=== PATIENT | male | born 1955 | race Caucasian/White ===

== ENCOUNTER 2017-05-26 08:17 | Day surgery (SDC) | payer OTHER ==
[2017-05-26] MEDS: FAMOTIDINE 20 MG TAB PO (06:00)
[2017-05-26] MEDS: DIAZEPAM 5 MG TAB PO (06:00)
[2017-05-26] MEDS: DIPHENHYDRAMINE 50 MG CAP PO (06:00)
[~2017-05-26 08:17] MED LIST: SOD CHLORIDE 0.45% 1,000 ML IV
[2017-05-26 09:30] LABS: ADD MAN DIFF? NO
[2017-05-26 09:33] LABS: WHITE BLOOD COUNT 5.1 10^3/ul (4.8-10.8)
[2017-05-26 09:33] LABS: BASOPHIL # 0.1 10^3/ul (0.0-0.1); EOSINOPHILS % 0.8 % (0.0-7.0); HEMATOCRIT 42.8 % (42.0-52.0); HEMOGLOBIN 14.8 g/dl (14.0-18.0); LYMPHOCYTES # 1.9 10^3/ul (0.8-2.9); LYMPHOCYTES % 37.3 % (15.0-51.0); MEAN CORPUSCULAR HEMOGLOBIN 31.6 pg (29.0-33.0); MEAN CORPUSCULAR HGB CONC 34.6 g/dl (32.0-37.0); MEAN CORPUSCULAR VOLUME 91.3 fl (82.0-101.0); MEAN PLATELET VOLUME 9.6 fl (7.4-10.4); MONOCYTE # 0.6 10^3/ul (0.3-0.9); MONOCYTES % 10.8 % (0.0-11.0); NEUTROPHIL # 2.5 10^3/ul (1.6-7.5); NEUTROPHILS % 49.5 % (39.0-77.0); PLATELET COUNT 268 10^3/UL (140-415); RED BLOOD COUNT 4.69 10^6/ul (4.70-6.10); RED CELL DISTRIBUTION WIDTH 11.9 % (11.5-14.5)
[2017-05-26 09:51] LABS: ANION GAP 15 (8-16); CARBON DIOXIDE 25 mmol/L (21-31); CHLORIDE 105 mmol/L (97-110); CHOL/HDL RATIO 4.8 RATIO; CHOLESTEROL 207 mg/dl (100-200); GLUCOSE 105 mg/dl (70-220); HDL CHOLESTEROL 43 mg/dl (30-78)
[2017-05-26 10:01] LABS: CREATININE 0.92 mg/dl (0.61-1.24); LDL CHOLESTEROL,CALCULATED 52 mg/dl; POTASSIUM 4.1 mmol/L (3.5-5.1); SODIUM 141 mmol/L (135-144); TRIGLYCERIDES 560 mg/dl (0-149)
[2017-05-26 10:06] LABS: INR 0.95; PROTIME 12.8 Sec (11.9-14.9)
[2017-05-26 10:07] LABS: BLOOD UREA NITROGEN 23 mg/dl (7-20); PARTIAL THROMBOPLASTIN TIME 30.4 Sec (25.0-35.0)
[2017-05-26] MEDS ORDERED: FENTAnyl 50 MCG/ML VIAL (10:34)
[2017-05-26] MEDS ORDERED: NITROGLYCERIN (IC) 100 MCG/ML INJ (10:34)
[2017-05-26] MEDS ORDERED: VERAPAMIL 5 MG INJ (10:34)
[2017-05-26] MEDS ORDERED: IODIXANOL LOCM 100 ML BTL ×2 (10:34→11:47)
[2017-05-26] MEDS ORDERED: LIDOCAINE 1% (MDV) 20 ML INJ (10:34)
[2017-05-26] MEDS ORDERED: MIDAZOLAM 1 MG/ML 2 ML INJ (10:34)
[2017-05-26] MEDS ORDERED: HEPARIN 1000 UNITS/ML 10 ML INJ (10:34)
[2017-05-26] MEDS ORDERED: morphine 2 MG INJ IV (12:00)
[2017-05-26] MEDS ORDERED: AL HYDROX/MG HYDROX/SIMETH 30 ML CUP PO (12:00)
[2017-05-26] MEDS ORDERED: ONDANSETRON 4 MG INJ IV (12:00)
[2017-05-26] MEDS ORDERED: ACETAMINOPHEN 325 MG TAB PO (12:00)
[2017-05-26] MEDS: SOD CHLORIDE 0.9% 1,000 ML IV (12:25)
== END 2017-05-26 16:28 | disposition home or self-care (01) ==
LOC: SDS 08:17
DX: I25.10 Atherosclerotic heart disease of native coronary artery without angina pectoris (principal); R94.39 Abnormal result of other cardiovascular function study
CPT/HCPCS: 71045; 80048; 80061; 85025; 85610; 85730; 93005; 93458

== ENCOUNTER 2017-08-23 12:32 | Day surgery (SDC) | payer OTHER ==
[2017-08-23] MEDS ORDERED: PROPOFOL 40 ML (15:51)
== END 2017-08-23 16:46 | disposition home or self-care (01) ==
LOC: GIL 12:32
DX: Z12.11 Encounter for screening for malignant neoplasm of colon (principal); K62.1 Rectal polyp; D12.2 Benign neoplasm of ascending colon; K29.70 Gastritis, unspecified, without bleeding; K21.9 Gastro-esophageal reflux disease without esophagitis; I25.10 Atherosclerotic heart disease of native coronary artery without angina pectoris; J45.909 Unspecified asthma, uncomplicated
CPT/HCPCS: 43239; 88305; 88312

== ENCOUNTER 2019-01-03 11:53 | Inpatient (IN) | payer OTHER ==
[2019-01-03 14:08] LABS: ADD MAN DIFF? NO
[2019-01-03 14:10] LABS: BASOPHIL # 0.1 10^3/ul (0.0-0.1); BASOPHILS % 0.7 % (0.0-2.0); EOSINOPHILS # 0.1 10^3/ul (0.0-0.5); EOSINOPHILS % 0.6 % (0.0-7.0); HEMOGLOBIN 14.9 g/dl (14.0-18.0); LYMPHOCYTES # 2.3 10^3/ul (0.8-2.9); LYMPHOCYTES % 27.9 % (15.0-51.0); MEAN CORPUSCULAR HEMOGLOBIN 31.2 pg (29.0-33.0); MEAN CORPUSCULAR HGB CONC 33.9 g/dl (32.0-37.0); MEAN CORPUSCULAR VOLUME 92.1 fl (82.0-101.0); MEAN PLATELET VOLUME 10.3 fl (7.4-10.4); MONOCYTE # 0.8 10^3/ul (0.3-0.9); MONOCYTES % 9.2 % (0.0-11.0); NEUTROPHILS % 60.7 % (39.0-77.0); PLATELET COUNT 275 10^3/UL (140-415); RED BLOOD COUNT 4.78 10^6/ul (4.70-6.10); RED CELL DISTRIBUTION WIDTH 11.5 % (11.5-14.5)
[2019-01-03 14:10] LABS: WHITE BLOOD COUNT 8.2 10^3/ul (4.8-10.8)
[2019-01-03 14:16] LABS: ANION GAP 9 (5-13); BLOOD UREA NITROGEN 19 mg/dl (7-20); CALCIUM 9.4 mg/dl (8.4-10.2); CARBON DIOXIDE 26 mmol/L (21-31); CHLORIDE 104 mmol/L (97-110); CREATININE 0.96 mg/dl (0.61-1.24); Estimated GFR > 60 mL/min (>60); GLUCOSE 97 mg/dl (70-220); POTASSIUM 4.4 mmol/L (3.5-5.1); SODIUM 139 mmol/L (135-144)
[2019-01-03 14:28] LABS: TROPONIN-I < 0.012 ng/ml (0.000-0.120)
[2019-01-03] MEDS: ASPIRIN 325 MG TAB PO (14:30)
[2019-01-03 17:17] LABS: CREATINE KINASE 110 IU/L (23-200)
[2019-01-03 17:30] LABS: CK INDEX 1.4; CK-MB 1.51 ng/ml (0.0-2.4); TROPONIN-I < 0.012 ng/ml (0.000-0.120)
[2019-01-03] MEDS ORDERED: morphine 2 MG INJ IV (19:00)
[2019-01-03] MEDS ORDERED: DOCUSATE SODIUM 100 MG CAP PO (19:00)
[2019-01-03] MEDS ORDERED: BISACODYL (EC) 5 MG TAB PO (19:00)
[2019-01-03] MEDS ORDERED: NACL 0.9% 3 ML SYG IV (19:00)
[2019-01-03] MEDS ORDERED: ACETAMINOPHEN 325 MG TAB PO ×2 (19:00→20:30)
[2019-01-03] MEDS ORDERED: HYDROCODONE/APAP (5/325) TAB PO (19:00)
[2019-01-03] MEDS ORDERED: ONDANSETRON 4 MG INJ IV ×2 (19:00→20:30)
[2019-01-03] MEDS ORDERED: ACETAMINOPHEN 650 MG SUPP PR (19:00)
[2019-01-03] MEDS ORDERED: ZOLPIDEM 5 MG TAB PO (19:00)
[2019-01-03 19:57] LABS: INR 0.99; PROTIME 13.2 Sec (11.9-14.9)
[2019-01-03 19:58] LABS: PARTIAL THROMBOPLASTIN TIME 28.3 Sec (23.0-35.0)
[2019-01-03] MEDS: PROPRANOLOL 20 MG TAB PO (22:00)
[2019-01-04 02:56] LABS: CREATINE KINASE 88 IU/L (23-200)
[2019-01-04 03:08] LABS: CK INDEX 1.5; CK-MB 1.36 ng/ml (0.0-2.4); TROPONIN-I < 0.012 ng/ml (0.000-0.120)
[2019-01-04] MEDS: PANTOPRAZOLE (EC) 40 MG TAB PO (05:49)
[2019-01-04 06:51] LABS: ADD MAN DIFF? NO
[2019-01-04 07:00] LABS: WHITE BLOOD COUNT 5.6 10^3/ul (4.8-10.8)
[2019-01-04 07:00] LABS: BASOPHIL # 0.1 10^3/ul (0.0-0.1); BASOPHILS % 0.9 % (0.0-2.0); EOSINOPHILS # 0.1 10^3/ul (0.0-0.5); HEMATOCRIT 42.7 % (42.0-52.0); HEMOGLOBIN 14.4 g/dl (14.0-18.0); LYMPHOCYTES # 2.4 10^3/ul (0.8-2.9); LYMPHOCYTES % 43.3 % (15.0-51.0); MEAN CORPUSCULAR HEMOGLOBIN 31.4 pg (29.0-33.0); MEAN CORPUSCULAR HGB CONC 33.7 g/dl (32.0-37.0); MEAN CORPUSCULAR VOLUME 93.2 fl (82.0-101.0); MEAN PLATELET VOLUME 10.4 fl (7.4-10.4); MONOCYTE # 0.7 10^3/ul (0.3-0.9); MONOCYTES % 12.6 % (0.0-11.0); NEUTROPHIL # 2.3 10^3/ul (1.6-7.5); NEUTROPHILS % 40.8 % (39.0-77.0); PLATELET COUNT 236 10^3/UL (140-415); RED BLOOD COUNT 4.58 10^6/ul (4.70-6.10); RED CELL DISTRIBUTION WIDTH 11.7 % (11.5-14.5)
[2019-01-04 07:15] LABS: INR 1.03; PROTIME 13.6 Sec (11.9-14.9); PT RATIO 1.1
[2019-01-04 07:24] LABS: ALANINE AMINOTRANSFERASE 28 IU/L (13-69); ALBUMIN 3.8 g/dl (3.3-4.9); ALBUMIN/GLOBULIN RATIO 1.15; ALKALINE PHOSPHATASE 64 IU/L (42-121); ANION GAP 7 (5-13); ASPARTATE AMINO TRANSFERASE 32 IU/L (15-46); BILIRUBIN,INDIRECT 0.6 mg/dl (0-1.1); BILIRUBIN,TOTAL 0.6 mg/dl (0.2-1.3); BLOOD UREA NITROGEN 21 mg/dl (7-20); CALCIUM 9.1 mg/dl (8.4-10.2); CARBON DIOXIDE 27 mmol/L (21-31); CHLORIDE 105 mmol/L (97-110); Estimated GFR > 60 mL/min (>60); GLUCOSE 100 mg/dl (70-220); SODIUM 139 mmol/L (135-144); TOTAL PROTEIN 7.1 g/dl (6.1-8.1)
[2019-01-04 07:26] LABS: CHOL/HDL RATIO 6.6 RATIO; HDL CHOLESTEROL 31 mg/dl (30-78)
[2019-01-04 07:26] LABS: CHOLESTEROL 205 mg/dl (100-200)
[2019-01-04 07:29] LABS: POTASSIUM 4.1 mmol/L (3.5-5.1)
[2019-01-04 07:46] LABS: LDL CHOLESTEROL,CALCULATED 48 mg/dl; TRIGLYCERIDES 629 mg/dl (0-149)
[2019-01-04 07:59] LABS: HEMOGLOBIN A1C 5.2 % (0-5.9)
[2019-01-04] MEDS: NEVIRAPINE 200 MG TAB PO (09:00)
[2019-01-04] MEDS: BENAZEPRIL 20 MG TAB PO (09:57)
[2019-01-04] MEDS: THIAMINE 100 MG TAB PO (09:57)
[2019-01-04] MEDS: EMTRICITABINE/TENOFOVIR TAB PO (09:57)
[2019-01-04] MEDS: ASPIRIN (EC) 81 MG TAB PO (09:57)
[2019-01-04] MEDS: PROPRANOLOL 20 MG TAB PO ×3 (09:58→20:39)
[2019-01-04] MEDS: ENOXAPARIN 40 MG/0.4 ML SYG SC (10:00)
[2019-01-04] MEDS: GEMFIBROZIL 600 MG TAB PO (17:27)
[2019-01-05] MEDS: PANTOPRAZOLE (EC) 40 MG TAB PO (05:54)
[2019-01-05 07:16] LABS: FREE T4 (FREE THYROXINE) 0.73 ng/dl (0.78-2.44)
[2019-01-05 07:30] LABS: TRIIODOTHYRONINE 0.97 ng/ml (0.97-1.69)
[2019-01-05] MEDS: GEMFIBROZIL 600 MG TAB PO (07:35)
[2019-01-05] MEDS: EMTRICITABINE/TENOFOVIR TAB PO (08:54)
[2019-01-05] MEDS: THIAMINE 100 MG TAB PO (08:54)
[2019-01-05] MEDS: ASPIRIN (EC) 81 MG TAB PO (08:54)
[2019-01-05] MEDS: PROPRANOLOL 20 MG TAB PO (08:54)
[2019-01-05] MEDS: BENAZEPRIL 20 MG TAB PO (08:54)
[2019-01-05] MEDS: NEVIRAPINE 200 MG TAB PO (08:55)
[2019-01-05] MEDS: ENOXAPARIN 40 MG/0.4 ML SYG SC (08:59)
== END 2019-01-05 13:44 | disposition home or self-care (01) | DRG 313 ==
LOC: FTE 11:53 → TEL 20:31
DX: R07.9 Chest pain, unspecified (principal); I25.10 Atherosclerotic heart disease of native coronary artery without angina pectoris; I10 Essential (primary) hypertension; N40.0 Benign prostatic hyperplasia without lower urinary tract symptoms; E78.1 Pure hyperglyceridemia; R94.6 Abnormal results of thyroid function studies
CPT/HCPCS: 36415; 71045; 80048; 80053; 80061; 82550; 82553; 83036; 83735; 84100; 84439; 84443; 84480; 84484; 85025; 85610; 85730; 93005; 99285-25